=== PATIENT | female | born 1990 | race Caucasian/White ===

== ENCOUNTER 2019-05-16 18:59 | Emergency (ER) | payer OTHER ==
[2019-05-16] MEDS ORDERED: SODIUM CHLORIDE 0.9% 500 ML 500 ML IV STA (19:54)
--- NOTE | 2019-05-16 20:08 | XR ---
EXAMINATION: XR chest 2V DATE AND TIME: 05/16/2019 7:32 PM CLINICAL INDICATION: PHH; Pain/ shortness of breath TECHNIQUE: Departmental protocol COMPARISON: None FINDINGS: The lungs are clear. The pleural spaces are negative. The cardiac silhouette is not enlarged. The remainder of the mediastinal silhouette is unremarkable. The skeletal structures and soft tissues are negative for acute findings. IMPRESSION: NO ACUTE PROCESS.
--- NOTE | 2019-05-16 20:15 | ED ---
Chest Pain HPI - General Chief Complaint: Chest Pain Stated Complaint: CHEST PAIN, ELAINE, PAIN WITH BREATHING Time Seen by Provider: 05/16/19 19:54 Source: patient, RN notes reviewed Mode of arrival: ambulatory Limitations: no limitations - History of Present Illness Initial Comments: 29-year-old female presents emergency Department chief complaint of pleuritic chest pain. Patient states that she's had pain over the last week but states is worsened today. Patient states only when she takes a deep breath. Patient does feel short breath. Patient has no prior medical history she is a daily smoker denies history of hypertension, hyperlipidemia, diabetes, family cardiac disease, history DVT. Patient denies any calf pain, leg swelling, nausea vomit ing diarrhea constipation no fever no URI symptoms. - Related Data Previous Rx's Medication Instructions Recorded predniSONE 50 mg PO DAILY #5 tab 05/16/19 Allergies Allergy/AdvReac Type Severity Reaction Status Date / Time Penicillins AdvReac Rash/Hives Verified 05/16/19 20:37 Review of Systems ROS Statement: Those systems with pertinent positive or pertinent negative responses have been documented in the HPI. ROS Other: All systems not noted in ROS Statement are negative. EKG Findings - EKG Comments: EKG Findings:: EKG performed at 20:10 normal sinus rhythm rate of 76 OK 204 QRS 82 / QTC 380/427 Past Medical History Past Medical History: No Reported History History of Any Multi-Drug Resistant Organisms: None Reported Additional Past Surgical History / Comment(s): D&C, Past Psychological History: No Psychological Hx Reported Smoking Status: Current every day smoker Past Alcohol Use History: None Reported Past Drug Use History: None Reported General Exam Limitations: no limitations Course Vital Signs 05/16/19 05/16/19 19:18 20:27 Temperature 98.5 F Pulse Rate 79 Pulse Rate [ 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 Patient EKG, chest x- ray, labs. Patient has a negative troponin, negative d-dimer. This is more consistent with pleurisy versus gastroenteritis. Patient has been trying anti- inflammatories no relief will be given a course of steroids will follow-up with PCP for recheck and return for any worsening symptoms. Disposition Clinical Impression: Pleurisy, Chest wall pain Disposition: HOME SELF-CARE Condition: Stable Instructions (If sedation given, give patient instructions): Pleurisy (DC) Additional Instructions: Please return to the Emergency Department if symptoms worsen or any other concerns. Prescriptions: predniSONE 50 mg PO DAILY #5 tab Is patient prescribed a controlled substance at d/c from ED?: No Referrals: None,Stated [Primary Care Provider] - 1-2 days Time of Disposition: 21:19
[2019-05-16 20:33] LABS: Basophils % (A) 0 %; Eosinophils # (A) 0.2 k/uL (0-0.7); Eosinophils % (A) 2 %; HCT 37.2 % (34.0-46.0); HGB 12.1 gm/dL (11.4-16.0); Lymphocytes # (A) 2.2 k/uL (1.0-4.8); Lymphocytes % (A) 28 %; MCH 31.4 pg (25.0-35.0); MCHC 32.7 g/dL (31.0-37.0); MCV 96.2 fL (80.0-100.0); Monocytes # (A) 0.2 k/uL (0-1.0); Monocytes % (A) 3 %; Neutrophils # (A) 5.1 k/uL (1.3-7.7); Neutrophils % (A) 65 %; Platelet Count 294 k/uL (150-450); RBC 3.86 m/uL (3.80-5.40); RDW 13.6 % (11.5-15.5); WBC 7.9 k/uL (3.8-10.6)
[2019-05-16 20:42] LABS: ALT 16 U/L (9-52); AST 20 U/L (14-36); African American GFR (CKD) >90 (>60 ml/min/1.73 sqM); Albumin 4.1 g/dL (3.5-5.0); Alkaline Phosphatase 90 U/L (38-126); Anion Gap 8 mmol/L; Blood Urea Nitrogen 9 mg/dL (7-17); Calcium 9.4 mg/dL (8.4-10.2); Carbon Dioxide 25 mmol/L (22-30); Chloride 107 mmol/L (98-107); Glucose 110 mg/dL (74-99); Magnesium 1.8 mg/dL (1.6-2.3); Potassium 3.8 mmol/L (3.5-5.1); Sodium 140 mmol/L (137-145); Total Bilirubin <0.1 mg/dL (0.2-1.3); Total Protein 6.6 g/dL (6.3-8.2)
[2019-05-16 20:48] LABS: D-Dimer 0.3 mg/L FEU (<0.60); Partial Thromboplastin Time 24.4 sec (22.0-30.0); Prothrombin Time 10.6 sec (9.0-12.0)
[2019-05-16 22:12] VITALS: BP 129/74; PULSE 75; RESP 18; TEMP 98.3
--- NOTE | 2019-05-18 06:36 | CDI ---
Documentation Clarification OP Dear Vinny DELGADILLO, PAC Please do the addendum for physical examination. Thank you, Tatiana Knapp Admitting Manager If you have any question, Please contact shared services manager at [phone] [facility]
== END 2019-05-16 21:59 | disposition home or self-care (01) ==
LOC: EC 18:59
DX: R07.81 Pleurodynia (principal); R09.1 Pleurisy; F17.200 Nicotine dependence, unspecified, uncomplicated; Z88.0 Allergy status to penicillin
CPT/HCPCS: 36415; 71046; 80053; 81025; 83735; 84484; 85025; 85379; 85610; 85730; 93005; 99285

== ENCOUNTER 2021-06-22 22:09 | Emergency (ER) | payer OTHER ==
[2021-06-22 22:13] VITALS: TEMP 98.6
[2021-06-22] MEDS ORDERED: DIPH,PERTUS(ACELL)TETVAC-LF 0.5 ML VIAL IM ONE (22:23)
[2021-06-22] MEDS ORDERED: LIDOCAINE 1% INJ 10MG/ML (20 ML MDV) SQ ONE (22:23)
--- NOTE | 2021-06-22 23:17 | ED ---
Wound/Laceration HPI - General Chief Complaint: Wound/Laceration Stated Complaint: L Arm Lac Time Seen by Provider: 06/22/21 22:16 Source: patient, family, RN notes reviewed Mode of arrival: ambulatory Limitations: no limitations - History of Present Illness Initial Comments: Patient is a 31-year-old female that presents to emergency department complain ing of left wrist laceration after a dish broke while washing it. She notes that it cut her 3 times in the medial aspect of the left wrist. She noted that was not bleeding upon arrival the emergency room. She was not sure if he is up-to-date in her tetanus vaccine. She was otherwise no apparent distress or pain. She denied any chest pain shortness breath headache nausea vomiting diarrhea constipation fever fatigue chills. - Related Data Previous Rx's Medication Instructions Recorded predniSONE 50 mg PO DAILY #5 tab 05/16/19 Sulfamethox-Tmp 800-160Mg [Bactrim 1 each PO Q12HR #14 tab 06/22/21 Ds] Allergies Allergy/AdvReac Type Severity Reaction Status Date / Time Penicillins AdvReac Rash/Hives Verified 06/22/21 22:13 Review of Systems ROS Statement: Those systems with pertinent positive or pertinent negative responses have been documented in the HPI. ROS Other: All systems not noted in ROS Statement are negative. Past Medical History Past Medical History: No Reported History History of Any Multi-Drug Resistant Organisms: None Reported Additional Past Surgical History / Comment(s): D&C, Past Psychological History: No Psychological Hx Reported Smoking Status: Current every day smoker Past Alcohol Use History: None Reported Past Drug Use History: None Reported General Exam Limitations: no limitations General appearance: alert, in no apparent distress Head exam: Present: atraumatic, normocephalic, normal inspection Eye exam: Present: normal appearance, PERRL, EOMI. Absent: scleral icterus, conjunctival injection, periorbital swelling Neck exam: Present: normal inspection Respiratory exam: Present: normal lung sounds bilaterally. Absent: respiratory distress, wheezes, rales, rhonchi, stridor Cardiovascular Exam: Present: regular rate, normal rhythm, normal heart sounds. Absent: systolic murmur, diastolic murmur, rubs, gallop, clicks Extremities exam: Present: normal inspection, full ROM, normal capillary refill. Absent: tenderness, pedal edema, joint swelling, calf tenderness Neurological exam: Present: alert, oriented X3 Psychiatric exam: Present: normal affect, normal mood Skin exam: Present: warm, dry, intact, normal color, other (Laceration to the medial aspect of the left wrist measuring approximately 3 cm, 2 small skin flaps measuring 1-2 cm left wrist/forearm.). Absent: rash Course Vital Signs 06/22/21 22:10 Temperature 98.6 F Pulse Rate 109 H Respiratory 20 Rate Blood Pressure 133/78 O2 Sat by Pulse 99 Oximetry Procedures - Laceration Laceration #1 Consent Obtained: verbal consent Indication: laceration Site: upper extremity (Left wrist) Size (cm): 3 Description: linear Depth: simple, single layer Anesthetic Used: lidocaine 1% Anesthesia Technique: local infiltration Amount (mls): 4 Pre-repair: irrigated extensively Type of Sutures: nylon Size of Sutures: 4-0 Number of Sutures: 5 Technique: simple, interrupted Patient Tolerated Procedure: well, no complications Laceration #2 Consent Obtained: verbal consent Site: upper extremity (Left wrist) Description: flap Depth: simple, single layer Anesthetic Used: lidocaine 1% Anesthesia Technique: local infiltration Amount (mls): 1 Pre-repair: irrigated extensively Type of Sutures: nylon Size of Sutures: 4-0 Number of Sutures: 1 Technique: simple, interrupted Patient Tolerated Procedure: well, no complications Laceration #3 Consent Obtained: verbal consent Indication: laceration Site: upper extremity (Left wrist most proximal) Size (cm): 2 Description: flap Depth: simple, single layer Anesthetic Used: lidocaine 1% Anesthesia Technique: local infiltration Amount (mls): 2 Pre-repair: irrigated extensively Type of Sutures: nylon Size of Sutures: 4-0 Technique: simple, interrupted Patient Tolerated Procedure: well, no complications Medical Decision Making - Medical Decision Making 31-year-old female with 3 small left wrist lacerations from a broken dish. Lidocaine, tetanus vaccine ordered. Patient tolerated suturing well. Case discussed with Dr. Cordoba, patient discharge home with follow-up to primary care. Disposition Clinical Impression: Laceration Disposition: HOME SELF-CARE Condition: Stable Instructions (If sedation given, give patient instructions): Laceration (ED), Care For Your Stitches (ED) Additional Instructions: Please return to the Emergency Department if symptoms worsen or any other concerns. Take antibiotics as prescribed until complete. Follow-up primary care in the next 1-2 days. Use return in 7-10 days to have sutures removed. Keep areas clean and dry spot. Is patient prescribed a controlled substance at d/c from ED?: No Referrals: None,Stated [Primary Care Provider] - 1-2 days Time of Disposition: 23:16
[2021-06-22 23:33] VITALS: BP 109/83; PULSE 90; RESP 18
== END 2021-06-22 23:31 | disposition home or self-care (01) ==
LOC: EC 22:09
DX: S61.512A Laceration without foreign body of left wrist, initial encounter (principal); F17.200 Nicotine dependence, unspecified, uncomplicated; Z88.0 Allergy status to penicillin; Z23 Encounter for immunization; W26.8XXA Contact with other sharp object(s), not elsewhere classified, initial encounter; Y93.G1 Activity, food preparation and clean up
CPT/HCPCS: 90715; 99282; 90471; 12032; J2001

== ENCOUNTER 2021-08-04 00:03 | Emergency (ER) | payer OTHER ==
[2021-08-04] MEDS ORDERED: methylPREDNISolone SOD SUCCI 125 MG/2 ML VIAL IV STA (00:25)
[2021-08-04] MEDS ORDERED: diphenhydrAMINE 50 MG/ML 1 ML VIAL IVP STA (00:25)
[2021-08-04] MEDS ORDERED: FAMOTIDINE 20 MG/2 ML VIAL IV STA (00:25)
[2021-08-04 00:50] LABS: Appearance,Urine Turbid (Clear); Bacteria,Urine Many /hpf; Bilirubin,Urine Negative (Negative); Blood,Urine Large (Negative); Color,Urine Yellow; Glucose,Urine (UA) Negative (Negative); Hyaline Casts,Urine 8 /lpf (0-2); Ketones,Urine Negative (Negative); Leukocyte Esterase,Urine Large (Negative); Mucus,Urine Many /hpf; Nitrite,Urine Positive (Negative); Protein,Urine 2+ (Negative); RBC,Urine 175 /hpf (0-5); Specific Gravity,Urine 1.025 (1.001-1.035); Squamous Epithelial Cell,Urine 2 /hpf (0-4); Urobilinogen,Urine <2.0 mg/dL (<2.0); WBC,Urine >182 /hpf (0-5)
[2021-08-04] MEDS ORDERED: cefTRIAXone IN SWFI 1,000 MG/10 ML SYRINGE IVP STA (01:57)
[2021-08-04] MEDS ORDERED: PHENAZOPYRIDINE 200 MG TAB PO STA (02:04)
--- NOTE | 2021-08-04 02:06 | ED ---
General Adult HPI - General Chief complaint: Allergic Reaction Stated complaint: Allergic Reaction Time Seen by Provider: 08/04/21 00:10 Source: patient Mode of arrival: ambulatory Limitations: no limitations - History of Present Illness Initial comments: 31 year-old female patient presents for evaluation of generalized rash and itching. States symptoms started shortly after taking a dose of bactrim. Patient states she has had this medication in the past without incident. States that her lips are tingling and burning. Denies any tongue or throat swelling. Denies abdominal pain. Denies fever or chills. Denies exposure to any other new substances. She was taking the bactrim because she was having urinary symptoms and low back pain. She denies any chance of . Patient denies any recent cough, shortness of breath, chest pain, nausea, vomiting, diarrhea, constipation, back pain, dizziness, weakness, headache, visual changes, or any other complaints. - Related Data Previous Rx's Medication Instructions Recorded predniSONE 50 mg PO DAILY #5 tab 05/16/19 Sulfamethox-Tmp 800-160Mg [Bactrim 1 each PO Q12HR #14 tab 06/22/21 Ds] Cephalexin [Keflex] 500 mg PO Q6H #28 cap 08/04/21 Famotidine [Pepcid] 20 mg PO DAILY #3 tablet 08/04/21 Fluconazole [Diflucan] 150 mg PO ONCE #2 tab 08/04/21 Phenazopyridine [Pyridium] 200 mg PO TID #9 tablet 08/04/21 predniSONE 50 mg PO DAILY #3 tab 08/04/21 Allergies Allergy/AdvReac Type Severity Reaction Status Date / Time sulfamethoxazole Allergy Rash/Hives Verified 08/04/21 00:11 [From Bactrim] trimethoprim [From Bactrim] Allergy Rash/Hives Verified 08/04/21 00:11 Penicillins AdvReac Rash/Hives Verified 08/04/21 00:10 Review of Systems ROS Statement: Those systems with pertinent positive or pertinent negative responses have been documented in the HPI. ROS Other: All systems not noted in ROS Statement are negative. Past Medical History Past Medical History: No Reported History History of Any Multi-Drug Resistant Organisms: None Reported Additional Past Surgical History / Comment(s): D&C, Past Psychological History: No Psychological Hx Reported Smoking Status: Current every day smoker Past Alcohol Use History: None Reported Past Drug Use History: None Reported General Exam Limitations: no limitations General appearance: alert, in no apparent distress, other (This is a well- developed, well-nourished adult female patient in no acute distress. Vital signs upon presentation temperature 98.3F, pulse 122, respirations 22, blood pressure 123/84, pulse ox 98% on room air.) Eye exam: Present: normal appearance, PERRL, EOMI. Absent: scleral icterus, conjunctival injection, periorbital swelling ENT exam: Present: normal exam, normal oropharynx, mucous membranes moist Respiratory exam: Present: normal lung sounds bilaterally. Absent: respiratory distress, wheezes, rales, rhonchi, stridor Cardiovascular Exam: Present: regular rate, normal rhythm, normal heart sounds. Absent: systolic murmur, diastolic murmur, rubs, gallop, clicks GI/Abdominal exam: Present: soft, normal bowel sounds. Absent: distended, tenderness, guarding, rebound, rigid Neurological exam: Present: alert, oriented X3, CN II-XII intact Psychiatric exam: Present: normal affect, normal mood Skin exam: Present: warm, dry, intact, normal color, rash (Generalized urticarial rash noted), urticaria Course Vital Signs 08/04/21 00:07 Temperature 98.3 F Pulse Rate 122 H Respiratory 22 Rate Blood Pressure 123/84 O2 Sat by Pulse 98 Oximetry Medical Decision Making - Medical Decision Making 31-year-old female patient presented to the emergency department today for evaluation of generalized rash and itching after taking a dose of Bactrim. Patient took the dose of Bactrim for possible urinary tract infection. An IV was started she was given Benadryl, steroid, and Pepcid. Urinalysis was obtained and was positive for urinary tract infection with positive nitrates. test was negative. Upon reevaluation patient is resting comfortably in bed. States her symptoms are improved. She was given an IV dose of Rocephin she'll be discharged with Keflex for UTI. She'll be discharged also with prednisone and Pepcid for ALLERGIC reaction. She is instructed to not take Bactrim again. She is instructed to follow-up with her primary care physician for recheck in 1-2 days. Return parameters were discussed in detail. She verbalizes understanding and agrees with this plan. Case discussed with my attending Dr. Couch. - Lab Data Lab Results 08/04/21 08/04/21 Range/Units 00:13 00:32 Urine Color Yellow Urine Appearance Turbid H (Clear) Urine pH 6.0 (5.0-8.0) Ur Specific [place] 1.025 (1.001-1.035) Urine Protein 2+ H (Negative) Urine Glucose (UA) Negative (Negative) Urine Ketones Negative (Negative) Urine Blood Large H (Negative) Urine Nitrite Positive H (Negative) Urine Bilirubin Negative (Negative) Urine Urobilinogen <2.0 (<2.0) mg/dL Ur Leukocyte Esterase Large H (Negative) Urine RBC 175 H (0-5) /hpf Urine WBC >182 H (0-5) /hpf Ur Squamous Epith Cells 2 (0-4) /hpf Urine Bacteria Many H (None) /hpf Hyaline Casts 8 H (0-2) /lpf Urine Mucus Many H (None) /hpf Urine HCG, Qual Not Detected (Not Detectd) Disposition Clinical Impression: Allergic reaction, UTI (urinary tract infection) Disposition: HOME SELF-CARE Condition: Good Instructions (If sedation given, give patient instructions): Urinary Tract Infection in Women (ED), General Allergic Reaction (ED) Additional Instructions: Increase fluids. Complete antibiotic prescription in full. Take Benadryl every 6 hours as needed for itching. Follow-up with your primary care physician for recheck in 1-2 days. Return to the emergency department for any new, worsening, or concerning symptoms. Prescriptions: Fluconazole [Diflucan] 150 mg PO ONCE #2 tab Cephalexin [Keflex] 500 mg PO Q6H #28 cap Famotidine [Pepcid] 20 mg PO DAILY #3 tablet predniSONE 50 mg PO DAILY #3 tab Phenazopyridine [Pyridium] 200 mg PO TID #9 tablet Is patient prescribed a controlled substance at d/c from ED?: No Referrals: None,Stated [Primary Care Provider] - 1-2 days Time of Disposition: 02:06
[2021-08-04 02:41] VITALS: BP 112/72; PULSE 84; RESP 18; TEMP 97.7
== END 2021-08-04 02:40 | disposition home or self-care (01) ==
LOC: EC 00:03
DX: T78.40XA Allergy, unspecified, initial encounter (principal); N39.0 Urinary tract infection, site not specified; F17.200 Nicotine dependence, unspecified, uncomplicated; Z88.0 Allergy status to penicillin; Z88.1 Allergy status to other antibiotic agents; Z88.2 Allergy status to sulfonamides
CPT/HCPCS: 81001; 81025; 87086; 99284; 96374; 96375; J1200; J2930; J0696

== ENCOUNTER 2021-08-24 17:17 | Emergency (ER) | payer OTHER ==
[2021-08-24 17:35] VITALS: BP 128/96; PULSE 88; RESP 16; TEMP 98.5
--- NOTE | 2021-08-24 18:30 | XR ---
EXAMINATION TYPE: XR wrist complete LT DATE OF EXAM: 08/24/2021 COMPARISON: NONE HISTORY: Wrist pain. TECHNIQUE: 4 views FINDINGS: Carpal bones are intact. I see no fracture nor dislocation. Scaphoid appears normal. Joint spaces are fairly normal. Radiocarpal joint is anatomic. IMPRESSION: Negative left wrist exam.
--- NOTE | 2021-08-24 18:54 | ED ---
Upper Extremity HPI - General Chief Complaint: Extremity Injury, Upper Stated Complaint: lt arm/wrist injury Time Seen by Provider: 08/24/21 17:44 Source: patient, RN notes reviewed Mode of arrival: ambulatory Limitations: no limitations - History of Present Illness Initial Comments: Patient is a 31-year-old female presenting to the emergency Department with complaints of left wrist pain started increasing throughout the day. Patient started a new job back in February, she does a lot of things with her hands. She states today she started noticing pain along her left wrist, she has some tingling sensations into her left thumb and also some pain radiating up into her left arm. She denies any falls or trauma. No history of surgeries or injuries to her left arm. She denies any fevers or chills. She has no further complaints at this time. - Related Data Previous Rx's Medication Instructions Recorded predniSONE 50 mg PO DAILY #5 tab 05/16/19 Sulfamethox-Tmp 800-160Mg [Bactrim 1 each PO Q12HR #14 tab 06/22/21 Ds] Cephalexin [Keflex] 500 mg PO Q6H #28 cap 08/04/21 Famotidine [Pepcid] 20 mg PO DAILY #3 tablet 08/04/21 Fluconazole [Diflucan] 150 mg PO ONCE #2 tab 08/04/21 Phenazopyridine [Pyridium] 200 mg PO TID #9 tablet 08/04/21 predniSONE 50 mg PO DAILY #3 tab 08/04/21 Allergies Allergy/AdvReac Type Severity Reaction Status Date / Time sulfamethoxazole Allergy Rash/Hives Verified 08/24/21 17:35 [From Bactrim] trimethoprim [From Bactrim] Allergy Rash/Hives Verified 08/24/21 17:35 Penicillins AdvReac Rash/Hives Verified 08/24/21 17:35 Review of Systems ROS Statement: Those systems with pertinent positive or pertinent negative responses have been documented in the HPI. ROS Other: All systems not noted in ROS Statement are negative. Past Medical History Past Medical History: No Reported History History of Any Multi-Drug Resistant Organisms: None Reported Additional Past Surgical History / Comment(s): D&C, Past Psychological History: No Psychological Hx Reported Smoking Status: Current every day smoker Past Alcohol Use History: None Reported Past Drug Use History: None Reported General Exam - General Exam Comments Initial Comments: GENERAL: Patient is well-developed and well-nourished. Patient is nontoxic and in no acute distress. HEAD: Atraumatic, normocephalic. EYES: Pupils equal round and reactive to light, extraocular movements intact, sclera anicteric, conjunctiva are normal. Eyelids were unremarkable. ENT: Moist mucous membranes. LUNGS: Unlabored respirations. Breath sounds clear to auscultation bilaterally and equal. No wheezes rales or rhonchi. HEART: Regular rate and rhythm without murmurs, rubs or gallops. MUSCULOSKELETAL: Patient has pain along the left carpal tunnel. Normal extremities with adequate strength and normal range of motion, no pitting or edema. No clubbing or cyanosis. She is neurovascular intact. NEUROLOGICAL: Patient is alert and oriented x 3. SKIN: Warm, Dry, normal turgor, no rashes or lesions noted. Limitations: no limitations Course Vital Signs 08/24/21 17:31 Temperature 98.5 F Pulse Rate 88 Respiratory 16 Rate Blood Pressure 128/96 O2 Sat by Pulse 96 Oximetry Medical Decision Making - Medical Decision Making Patient is a 31-year-old female here with left wrist pain that started today. No injuries or falls. No previous surgeries. No fevers, vitals are stable. Her exam and history is consistent with carpal tunnel. X-rays reveal no acute fractures dislocations. I recommended a splint at night, anti-inflammatory such as Motrin or Aleve. I also give her orthopedic referral. She is agreeable to this and is stable for discharge. Disposition Clinical Impression: Left wrist pain Disposition: HOME SELF-CARE Condition: Stable Instructions (If sedation given, give patient instructions): Wrist Injury (ED) Additional Instructions: Please return to the Emergency Department if symptoms worsen or any other concerns. Apply ice to the area, recommend anti-inflammatory such as Motrin or Aleve. Also recommend a wrist splint at night for better support. If symptoms persist without improvement, follow up with orthopedics as discussed. Is patient prescribed a controlled substance at d/c from ED?: No Referrals: None,Stated [Primary Care Provider] - 1-2 days Isac Chamberlain DO [Doctor of Osteopathic Medicine] - 1-2 days Time of Disposition: 18:54
== END 2021-08-24 19:09 | disposition home or self-care (01) ==
LOC: EC 17:17
DX: M25.532 Pain in left wrist (principal); R20.2 Paresthesia of skin; F17.200 Nicotine dependence, unspecified, uncomplicated; Z88.0 Allergy status to penicillin; Z88.1 Allergy status to other antibiotic agents; Z88.2 Allergy status to sulfonamides
CPT/HCPCS: 99283